=== PATIENT | female | born 1955 | race Caucasian/White ===

== ENCOUNTER → 2017-01-31 | Outpatient (CLI) | payer OTHER ==
[~2017-01-31] MED LIST: FLEXERIL PO; KETOPROFEN PO
--- NOTE | ~2017-01-31 | MY11 ---
[facility] A Service of [facility] RADIOLOGY TEXT RESULTS PATIENT: OBDULIO HAWKINS LOCATION: [facility] : 53 UNIT #: [id number] AGE: [address]: Jaci Austin MD SEX: F ORDER DR: [id number] [facility] [place], [place] [address] [id number] MR#: [id number] Acc #: [id number] NAME: OBDULIO HAWKINS : 1955 SEX: F STUDY DATE/TIME: 01/31/2017 9:21 UNIT: [facility] ROOM: STUDY DESCRIPTION: MY Mammogram Screening Dig Gregorio Attending Physician: Jaci Austin M.D. Referring Physician: Jaci Austin M.D. Ordering Physician: Jaci Austin M.D. Primary Care Physician: Jaci Austin M.D. MEDICAL IMAGING REPORT This report is preliminary unless electronic signature is present EXAM Bilateral digital screening mammogram with CAD HISTORY Routine screening. No current complaints. Baseline study. FINDINGS MLO and CC digital views of each breast were obtained. The exam was reviewed with an FDA-approved CAD device. The breasts are entirely fatty replaced. There are no masses or abnormal calcifications. IMPRESSION No evidence of malignancy. Patients over the age of 40 are entered into a reminder system with target due date for the next mammogram. A result letter will also be sent to the patient. BIRADS: 1 Negative Dictated by... Clement Castro M.D. THIS IS AN ELECTRONICALLY VERIFIED REPORT Clement Castro M.D. at 02/01/2017 7:04 AM KAREEM/rudi TD: 01/31/2017 13:05 JOB #: [id number] MEDICAL IMAGING REPORT Page 1 of 1 COPY
== END | disposition home or self-care (01) ==
LOC: CWCC 08:54
DX: Z12.31 Encounter for screening mammogram for malignant neoplasm of breast (principal)
CPT/HCPCS: G0202